=== PATIENT | female | born 1995 | race Hispanic/Latino ===

== ENCOUNTER 2018-08-12 22:46 | Emergency (ER) | payer MEDICAID, OTHER ==
[2018-08-12] MEDS ORDERED: DEXAMETHASONE SOD PHOSPHATE 10MG/ML 1ML VIAL ONE (23:36)
[2018-08-12 23:49] LABS: RAPID GROUP A STREP NEGATIVE (NEGATIVE)
[2018-08-13] MEDS ORDERED: IPRATROPIUM/ALBUTEROL SULFATE 3 ML SOLUTION IH ONE (00:11)
== END 2018-08-13 00:32 | disposition home or self-care (01) ==
LOC: EDH 22:46
DX: J20.9 Acute bronchitis, unspecified (principal); J02.9 Acute pharyngitis, unspecified; M32.9 Systemic lupus erythematosus, unspecified
CPT/HCPCS: 87804 ×2; 87880; 94640; 96372; 99284; J1100

== ENCOUNTER 2018-09-11 09:25 | Emergency (ER) | payer SELFPAY ==
[2018-09-11] MEDS ORDERED: ACETAMINOPHEN 325 MG TAB ONE (10:35)
== END 2018-09-11 10:45 | disposition home or self-care (01) ==
LOC: EDH 09:25
DX: S93.432A Sprain of tibiofibular ligament of left ankle, initial encounter (principal); L93.0 Discoid lupus erythematosus; W17.2XXA Fall into hole, initial encounter; Y93.89 Activity, other specified; Y92.89 Other specified places as the place of occurrence of the external cause; Y99.8 Other external cause status
CPT/HCPCS: 73610